=== PATIENT | female | born 1950 | race African-American/Black ===

== ENCOUNTER 2021-12-12 10:31 | Emergency (ER) | payer MEDICARE ==
[~2021-12-12] VITALS: Ht 162.6 cm; Wt 86.0 kg
[2021-12-12 10:39] VITALS: BP 143/122
[2021-12-12] MEDS ORDERED: GUAI-453 MT (12:56)
[2021-12-12] MEDS ORDERED: NIRM1TAB4 PO (12:56)
== END 2021-12-12 13:06 | disposition home or self-care (01) ==
LOC: ER 10:31
DX: U07.1 COVID-19 (principal); H57.89 Other specified disorders of eye and adnexa; I10 Essential (primary) hypertension; Z86.718 Personal history of other venous thrombosis and embolism; Z79.01 Long term (current) use of anticoagulants
CPT/HCPCS: 71045; 87426; 99283; C9803